=== PATIENT | female | born 1950 | race Caucasian/White ===

== ENCOUNTER → 2016-12-16 | Outpatient (CLI) | payer MEDICARE ==
--- NOTE | 2016-12-16 11:46 | RAD ---
CT of the abdomen and pelvis without contrast, 12/16/2016: History: Right flank pain Noncontrast scans were obtained as requested. The gallbladder is surgically absent. The unopacified liver is unremarkable. No pancreatic abnormality is seen. The spleen is of normal size. The unopacified kidneys show no evidence of calculi or obstruction. The adrenal glands are unremarkable. There is mild aortoiliac calcific plaquing without evidence of aneurysm. No abdominal or pelvic adenopathy is seen. The uterus and ovaries are unremarkable. The bowel loops are not dilated. There is a moderate amount of stool in scattered portions of the colon. No appendix is visualized. No free fluid or free air is evident in the abdomen or pelvis. There are mild scattered degenerative changes in the spine. There is a slight spondylolisthesis at L4-5 due to facet joint arthropathy. IMPRESSION: No acute abdominal or pelvic abnormality is detected. PQRS Compliance Statement: One or more of the following individualized dose reduction techniques were utilized for this examination: 1. Automated exposure control 2. Adjustment of the mA and/or kV according to patient size 3. Use of iterative reconstruction technique
== END | disposition home or self-care (01) ==
LOC: CT 10:39
PROVIDERS: ATTEND Family Medicine
DX: R10.9 Unspecified abdominal pain (principal); M43.16 Spondylolisthesis, lumbar region; M12.88 Other specific arthropathies, not elsewhere classified, other specified site
CPT/HCPCS: 74176

== ENCOUNTER 2020-11-24 17:24 | Emergency (ER) | payer MEDICARE ==
[~2020-11-24] VITALS: Ht 180.3 cm; Wt 132.1 kg
--- NOTE | 2020-11-24 18:15 | EKG ---
[address] [address] Test Date: 2020-11-24 Test Time: 17:38:53 Pat Name: STEPHEN MERCADO Department: Room: Gender: F Marketing Designer: : 1950 Requested By: KIN WINTER Order Number: [id number] Reading MD: Measurements Intervals [place] Rate: 66 P: 51 MS: 148 QRS: 36 QRSD: 98 T: 64 QT: 428 QTc: 451 Interpretive Statements SINUS RHYTHM NORMAL ECG RI6.02 No previous ECG available for comparison
[2020-11-24] MEDS ORDERED: IV NORMAL SALINE 1,000ML 1,000 ML IV ONE (19:15)
--- NOTE | 2020-11-24 19:29 | RAD ---
Study: XR CHEST 1V Indication: Chest pain. Comparison: None. Findings: The cardiomediastinal silhouette and justyn are within normal limits given AP technique. No confluent infiltrate, layering effusion or pneumothorax. Incompletely assessed degenerative changes at the shoulders and lower cervical spine. Impression: No acute radiographic abnormality of the chest. Electronically signed by: WU PECK MD (11/24/2020 7:26 PM) [facility]
[2020-11-24 19:38] LABS: BASO # 0.1 x10^3/uL (0.0-0.2); BASO % 1 % (0-3); EOS # 0.4 x10^3/uL (0.0-0.7); EOS % 4 % (0-3); HEMATOCRIT 39.4 % (36.0-47.0); LYMPH # 2.7 x10^3/uL (1.0-4.8); LYMPH % 30 % (24-48); MEAN CORPUSCULAR HEMOGLOBIN 29 pg (25-35); MEAN CORPUSCULAR HGB CONC 33 g/dL (31-37); MEAN CORPUSCULAR VOLUME 88 fL (79-100); MONO # 0.8 x10^3/uL (0.0-1.1); MONO % 9 % (0-9); NEUT % 56 % (31-73); PLATELET COUNT 264 x10^3/uL (140-400); RED BLOOD COUNT 4.49 x10^6/uL (3.50-5.40); RED CELL DISTRIBUTION WIDTH 14.4 % (11.5-14.5); WHITE BLOOD COUNT 9.1 x10^3/uL (4.0-11.0)
[2020-11-24 19:42] LABS: CALCIUM 9.1 mg/dL (8.5-10.1); CREATININE 0.9 mg/dL (0.6-1.0); GFR 61.5
[2020-11-24 19:48] LABS: ALBUMIN 3.6 g/dL (3.4-5.0); TOTAL BILIRUBIN 0.3 mg/dL (0.2-1.0); TOTAL PROTEIN 7.3 g/dL (6.4-8.2)
[2020-11-24 19:54] LABS: BILIRUBIN,URINE NEG (NEG); CLARITY,URINE CLEAR; COLOR,URINE YELLOW; GLUCOSE,URINE NEG (NEG); NITRITE,URINE NEG (NEG); UROBILINOGEN,URINE 0.2 mg/dL (0.2 mg/dL)
[2020-11-24 20:06] LABS: BACTERIA,URINE FEW /HPF (0-FEW); RBC,URINE 0 /HPF (0-2); SQUAMOUS EPITHELIAL CELL,UR OCC /LPF
--- NOTE | 2020-11-24 20:11 | PHYS DOC ---
Past History Past Medical History: CAD, Depression (KIN WINTER APRN) Past Surgical History: Cholecystectomy, , Knee Replacement, Other (KIN WINTER APRN) Alcohol Use: None (KIN WINTER APRN) General Adult EDM: Chief Complaint: Neck Pain HPI: HPI: Patient is a 70-year-old female who presents with chest pain and nausea. Patient states the pain started yesterday and she has been in bed all day long today. Patient denies radiation of pain. Patient denies taking anything for pain before arrival. Patient denies shortness of breath. Denies recent illness or fevers. Patient does have history of [place]. (KIN WINTER APRN) Review of Systems: Review of Systems: Constitutional: Denies fever or chills Eyes: Denies change in visual acuity HENT: Denies nasal congestion or sore throat Respiratory: Denies cough or shortness of breath Cardiovascular: Reports chest pain GI: Denies abdominal pain, vomiting, diarrhea. Reports nausea : Denies dysuria Musculoskeletal: Denies back pain or joint pain Integument: Denies rash Neurologic: Denies headache, focal weakness or sensory changes Endocrine: Denies polyuria or polydipsia Lymphatic: Denies swollen glands Psychiatric: Denies depression or anxiety (KIN WINTER APRN) Current Medications: Current Meds: Current Medications Medications (Trade) Dose Ordered Sig/Caesar Start Time Stop Time Status Last Admin Dose Admin Sodium Chloride 1,000 ml @ 1,000 mls/hr 1X ONCE 11/24/20 19:15 11/24/20 20:14 11/24/20 19:15 1,000 MLS/HR (KIN WINTER APRN) Allergies: Allergies: Allergies Coded Allergies Type Severity Reaction Last Updated Verified latex Allergy Unknown 11/24/20 Yes (KIN WINTER APRN) Physical Exam: PE: Constitutional: Well developed, well nourished, no acute distress, non-toxic appearance. [] HENT: Normocephalic, atraumatic, bilateral external ears normal, oropharynx moist, no oral exudates, nose normal. [] Eyes: PERRLA, EOMI, conjunctiva normal, no discharge. [] Neck: Normal range of motion, no tenderness, supple, no stridor. [] Cardiovascular:Heart rate regular rhythm, no murmur [] Lungs & Thorax: Bilateral breath sounds clear to auscultation [] Abdomen: Bowel sounds normal, soft, no tenderness, no masses, no pulsatile masses. [] Skin: Warm, dry, no erythema, no rash. [] Back: No tenderness, no CVA tenderness. [] Extremities: No tenderness, no cyanosis, no clubbing, ROM intact, no edema. [] Neurologic: Alert and oriented X 3, normal motor function, normal sensory function, no focal deficits noted. [] Psychologic: Affect normal, judgement normal, mood normal. [] (KIN WINTER FIELD EXAMINER) Current Patient Data: Labs: Laboratory Tests Test 11/24/20 19:11 White Blood Count 9.1 x10^3/uL (4.0-11.0) Red Blood Count 4.49 x10^6/uL (3.50-5.40) Hemoglobin 13.0 g/dL (12.0-15.5) Hematocrit 39.4 % (36.0-47.0) Mean Corpuscular Volume 88 fL (79-100) Mean Corpuscular Hemoglobin 29 pg (25-35) Mean Corpuscular Hemoglobin Concent 33 g/dL (31-37) Red Cell Distribution Width 14.4 % (11.5-14.5) Platelet Count 264 x10^3/uL (140-400) Neutrophils (%) (Auto) 56 % (31-73) Lymphocytes (%) (Auto) 30 % (24-48) Monocytes (%) (Auto) 9 % (0-9) Eosinophils (%) (Auto) 4 % (0-3) H Basophils (%) (Auto) 1 % (0-3) Neutrophils # (Auto) 5.0 x10^3uL (1.8-7.7) Lymphocytes # (Auto) 2.7 x10^3/uL (1.0-4.8) Monocytes # (Auto) 0.8 x10^3/uL (0.0-1.1) Eosinophils # (Auto) 0.4 x10^3/uL (0.0-0.7) Basophils # (Auto) 0.1 x10^3/uL (0.0-0.2) Sodium Level 142 mmol/L (136-145) Potassium Level 4.0 mmol/L (3.5-5.1) Chloride Level 104 mmol/L (98-107) Carbon Dioxide Level 28 mmol/L (21-32) Anion Gap 10 (6-14) Blood Urea Nitrogen 10 mg/dL (7-20) Creatinine 0.9 mg/dL (0.6-1.0) Estimated GFR (Cockcroft-Gault) 61.5 BUN/Creatinine Ratio 11 (6-20) Glucose Level 99 mg/dL (70-99) Calcium Level 9.1 mg/dL (8.5-10.1) Total Bilirubin 0.3 mg/dL (0.2-1.0) Aspartate Amino Transferase (AST) 27 U/L (15-37) Alanine Aminotransferase (ALT) 27 U/L (14-59) Alkaline Phosphatase 58 U/L (46-116) Troponin I Quantitative < 0.017 ng/mL (0-0.055) Total Protein 7.3 g/dL (6.4-8.2) Albumin 3.6 g/dL (3.4-5.0) Albumin/Globulin Ratio 1.0 (1.0-1.7) Vital Signs: Vital Signs Date Time Temp Pulse Resp B/P (MAP) Pulse Ox O2 Delivery O2 Flow Rate FiO2 11/24/20 18:51 57 16 119/64 (82) 99 Room Air 11/24/20 17:35 98.3 (KIN WINTER APRN) EKG: EKG: []EKG shows normal sinus rhythm. Heart rate 66 bpm. QRS 90, QTc 451. (KIN WINTER APRN) Radiology/Procedures: Radiology/Procedures: []Study: XR CHEST 1V Indication: Chest pain. Comparison: None. Findings: The cardiomediastinal silhouette and justyn are within normal limits given AP technique. No confluent infiltrate, layering effusion or pneumothorax. Incompletely assessed degenerative changes at the shoulders and lower cervical spine. Impression: No acute radiographic abnormality of the chest. Electronically signed by: WU PECK MD (11/24/2020 7:26 PM) [facility] (KIN WINTER APRN) Heart Score: C/O Chest Pain: Yes HEART Score for Chest Pain: HEART Score for Chest Pain Response (Comments) Value History Moderately Suspicious 1 ECG Normal 0 Age > 65 2 Risk Factors 1 or 2 Risk Factors 1 Troponin < Normal Limit 0 Total 4 Risk Factors: Risk Factors: DM, Current or recent (<one month) smoker, HTN, HLP, family history of CAD, obesity. Risk Scores: Score 0 - 3: 2.5% MACE over next 6 weeks - Discharge Home Score 4 - 6: 20.3% MACE over next 6 weeks - Admit for Clinical Observation Score 7 - 10: 72.7% MACE over next 6 weeks - Early Invasive Strategies (KIN WINTER APRN) Course & Med Decision Making: Course & Med Decision Making Pertinent Labs and Imaging studies reviewed. (See chart for details) [] Patient presents to the emergency room with chest pain and nausea. EKG shows normal sinus rhythm. Chest x-ray is negative for any acute abnormalities. All labs are unremarkable. Troponin is negative. Patient heart score 4. Patient given morphine and Zofran in the emergency room for pain control. Discussed results with patient. Sending patient home with Zofran and hydrocodone. Patient agreed to follow-up with her PCP tomorrow. I believe that pain is most likely referred from chronic right shoulder pain. Patient is appreciative and okay with discharge plan. (KIN WINTER APRN) Course & Med Decision Making Agree with ELEVATED MOTORMAN's work-up and disposition per note, as long as patient felt safe discharging home and was asymptomatic. (HARSHAL WALLACE MD) Dragon Disclaimer: Dragon Disclaimer: This electronic medical record was generated, in whole or in part, using a voice recognition dictation system. (KIN WINTER APRN) Departure Departure: Impression: Primary Impression: Nausea Additional Impression: Chronic shoulder pain Qualified Codes: M25.511 - Pain in right shoulder; G89.29 - Other chronic pain Disposition: HOME / SELF CARE / HOMELESS Condition: STABLE Referrals: WINDY SANTACRUZ MD (PCP) Patient Instructions: Nausea, Adult, [id number] Additional Instructions: You were seen in the emergency room for shoulder pain, nausea. You were given pain medication and nausea medication to take at home. Please follow-up with your PCP tomorrow for further management. Please return emergency room with worsening symptoms or concerns. EMERGENCY DEPARTMENT GENERAL DISCHARGE INSTRUCTIONS Thank you for coming to [facility] (ED) today and trusting us with you care. We trust that you had a positivie experience in our Emergency Department. If you wish to speak to the department management, you may call the director at [phone]. YOUR FOLLOW UP INSTRUCTIONS ARE FOLLOWS: 1. Do you have a private Doctor? If you do not have a private doctor, please ask for a resource list of physicians or clinics that may be able to assist you with follo w up care. 2. The Emergency Physician has interpreted your x-rays. The X-Ray specialist will also review them. If there is a change in the findings, you will be notified in 48 hours when at all possible. 3. A lab test or culture has been done, your results will be reviewed and you will be notified if you need a change in treatment. ADDITIONAL INSTRUCTIONS AND INFORMATION: 1. Your care today has been supervised by a physician who is specially trained in emergency care. Many problems require more than one evaluation for a complete diagnosis and treatment. We recommend that you schedule your follow up appointment as rec ommended to ensure complete treatment of you illness or injury. If you are unable to obtain follow up care and continue to have a problem, or if your condition worsens, we recommend that you return to the ED. 2. We are not able to safely determine your condition over the phone nor are we able to give sound medical advice over the phone. For these safety reasons, if you call for medical advice we will ask you to come to the ED for further evaluation. 3. If you have any questions regarding these discharge instructions please call the ED at [phone]. SAFETY INFORMATION: In the interest of safety, wellness, and injury prevention; we encourage you to wear your sealbelt, if you smoke; quite smoking, and we encourage family to use a protective helmet for bicycling and other sporting events that present an increased risk for head injury. IF YOUR SYMPTOMS WORSEN OR NEW SYMPTOMS DEVELOP, OR YOU HAVE CONCERNS ABOUT YOUR CONDITION; OR IF YOUR CONDITION WORSENS WHILE YOU ARE WAITING FOR YOUR FOLLOW UP APPOINTMENT; EITHER CONTACT YOUR PRIMARY CARE DOCTOR, THE PHYSICIAN WHOSE NAME AND NUMBER YOU WERE GIVEN, OR RETURN TO THE ED IMMEDIATELY. Scripts Hydrocodone Bit/Acetaminophen (HYDROCODONE-APAP 5-325 ) 1 Each Tablet 1 TAB PO PRN Q6HRS PRN for PAIN for 3 Days, #12 TAB 0 Refills Prov: KIN WINTER FIELD EXAMINER 11/24/20 Ondansetron Hcl (ZOFRAN) 4 Mg Tablet 4 MG PO TID PRN PRN for NAUSEA, #9 TAB Prov: KIN WINTER APRN 11/24/20 KIN WINTER APRN November 24, 2020 20:11 HARSHAL WALLACE MD November 25, 2020 01:47
[2020-11-24] MEDS ORDERED: ONDA4TAB7 PO (20:46)
[2020-11-24] MEDS ORDERED: HYDR-2155 PO (20:46)
[2020-11-24 21:00] VITALS: BP 129/69
[2020-11-24] MEDS ORDERED: MORPHINE SULFATE 4 MG/ML DISP.SYRIN. IV ONE (21:00)
[2020-11-24] MEDS ORDERED: ONDANSETRON PF 4 MG/2 ML VIAL. IVP ONE (21:00)
== END 2020-11-24 21:06 | disposition home or self-care (01) ==
LOC: ER 17:24
DX: R11.0 Nausea (principal); G89.29 Other chronic pain; M25.511 Pain in right shoulder; I25.10 Atherosclerotic heart disease of native coronary artery without angina pectoris; F32.9 Major depressive disorder, single episode, unspecified; Z91.040 Latex allergy status
CPT/HCPCS: 36415; 71045; 80053; 81001; 84484; 85025; 87086; 93005; 96361; 96374; 96375; 99285; J2270; J2405; J7030

== ENCOUNTER → 2021-07-02 | Outpatient (CLI) | payer MEDICARE ==
[~2021-07-02] MED LIST: HYDR-2155 PO; ONDA4TAB7 PO
--- NOTE | 2021-07-02 15:01 | RAD ---
XR CHEST 2V INDICATION: PRE OP FOR SHOULDER SURGERY, HBP / Spl. Instructions: / History: . COMPARISON STUDY: None. FINDINGS: Lungs: Normal lung volume. No pulmonary mass or consolidation. The tracheobronchial tree and hilar st ructures are normal. Pleura: No pleural effusion or pneumothorax. Heart and Mediastinum: The cardiomediastinal silhouette is normal. Mild tortuosity of the thoracic ao rta. Bones and Soft Tissues: Degenerative changes of the spine. IMPRESSION: No acute cardiopulmonary process. Electronically signed by: Godwin Lopez MD (07/02/2021 2:59 PM) [id number]
== END ==
LOC: RAD 12:10
PROVIDERS: ATTEND Family Medicine
DX: Z01.818 Encounter for other preprocedural examination (principal); Q25.46 Tortuous aortic arch; M47.814 Spondylosis without myelopathy or radiculopathy, thoracic region; I10 Essential (primary) hypertension
CPT/HCPCS: 71046